=== PATIENT | male | born 1950 ===

== ENCOUNTER 2017-01-19 11:34 | Emergency (ER) | payer MEDICAID ==
[2017-01-19 12:14] VITALS: RESP 18; O2SAT 96
[2017-01-19] MEDS ORDERED: Sodium Chloride 0.9% 1,000 ML IV ONE (13:04)
[2017-01-19 13:22] LABS: BASO # 0.1 K/uL (0.0-0.2); EOS # 2.5 K/uL (0.0-0.7); EOS % 20.8 % (0.0-4.0); HEMATOCRIT 46.8 % (35.0-51.0); LYMPH # 3.2 K/uL (1.0-4.3); LYMPH % 26.7 % (20.0-40.0); MEAN CELL VOLUME 90.6 fL (80.0-94.0); MEAN CORPUSCULAR HGB CONC 33.2 g/dL (33.0-37.0); MEAN PLATELET VOLUME 7.2 fL (7.2-11.7); MONO # 0.8 K/uL (0.0-0.8); MONO % 6.9 % (0.0-10.0); NRBC % 0.1 % (0.0-2.0); PLATELET COUNT 353 K/uL (130-400); RED CELL DISTRIBUTION WIDTH 13.2 % (11.5-14.5); WHITE BLOOD COUNT 12.1 K/uL (4.8-10.8)
[2017-01-19 13:29] LABS: CHLORIDE 100 mmol/L (98-107)
[2017-01-19 13:30] LABS: POTASSIUM 4.2 mmol/L (3.6-5.2); SODIUM 136 mmol/L (132-148)
[2017-01-19 13:33] LABS: ALB/GLOB RATIO 1.4 (1.0-2.1); ALKALINE PHOSPHATASE 64 U/L (38-126); ALT/SGPT 38 U/L (21-72); AST/SGOT 31 U/L (17-59); BILIRUBIN,TOTAL 1.3 mg/dL (0.2-1.3); BLOOD UREA NITROGEN 13 mg/dL (9-20); CALCIUM 8.8 mg/dl (8.6-10.4); CARBON DIOXIDE 24 mmol/L (22-30); GFR AFRICAN-AMERICAN > 60; GLUCOSE,RANDOM 127 mg/dL (75-110); TOTAL PROTEIN 7.2 g/dL (6.3-8.3)
[2017-01-19 13:46] LABS: BASOPHIL 1 % (0-2); EOSINOPHIL 25 % (0-4); NEUTROPHIL 48 % (50-75); REACTIVE LYMPHOCYTES 3 % (0-0); TOTAL CELLS COUNTED 100
--- NOTE | 2017-01-19 14:00 | C.PDOC ---
History Of Present Illness 66 y/o male presents to the ED complaining of RUQ abdominal pain x 2 months. He states his PMD told him to get an ultrasound. Patient notes the pain does increase with intake of fatty foods. Patient denies fever, vomiting, or other complaints. Chief Complaint (Nursing): Abdominal Pain History Per: Patient History/Exam Limitations: no limitations Onset/Duration Of Symptoms: Days (2 months), Persistent Current Symptoms Are (Timing): Still Present Location Of Pain/Discomfort: RUQ Radiation Of Pain To:: None Quality Of Discomfort: Sharp Exacerbating Factors: Food (fatty) Recent travel outside of the [place]: No Past Medical History Reviewed: Historical Data, Nursing Documentation, Vital Signs Vital Signs: Last Vital Signs Temp 98.8 F 01/19/17 16:24 Pulse 68 01/19/17 16:24 Resp 18 01/19/17 16:24 BP 132/90 01/19/17 16:24 Pulse Ox 96 01/19/17 16:24 - Medical History PMH: HTN Surgical History: No Surg Hx Family History: States: Unknown Family Hx - Social History Hx Tobacco Use: No Hx Alcohol Use: No Hx Substance Use: No - Immunization History Hx Influenza Vaccination: No Review Of Systems Except As Marked, All Systems Reviewed And Found Negative. Constitutional: Negative for: Fever Gastrointestinal: Positive for: Abdominal Pain (RUQ). Negative for: Vomiting Physical Exam - Physical Exam Appears: Non-toxic, No Acute Distress Skin: Normal Color, Warm, Dry Head: Atraumatic, Normacephalic Neck: Normal ROM, Supple Chest: Symmetrical, No Tenderness Cardiovascular: Rhythm Regular Respiratory: Normal Breath Sounds, No Rales, No Rhonchi, No Wheezing Gastrointestinal/Abdominal: Soft, Tenderness (RUQ), Other (positive Divya's sign) Back: Normal Inspection, No CVA Tenderness Extremity: Normal ROM, No Swelling Neurological/Psych: Oriented x3, Normal Speech, Normal Cognition ED Course And Treatment - Laboratory Results Result Diagrams: 01/19/17 13:14 01/19/17 13:14 O2 Sat by Pulse Oximetry: 96 (ra) Pulse Ox Interpretation: Normal - CT Scan/US Ultrasound Other Rad Studies (CT/US): Read By Radiologist (Dr. Christianson, David WISEMAN), Radiology Report Reviewed CT/US Interpretation: FINDINGS: LIVER: Measures 20.0 cm. Hepatomegaly.Hepatopedal blood flow. Fatty infiltration manifest ultrasonographically as increased Echogenicity of the liver parenchyma. No mass. No intrahepatic bile duct dilatation. GALLBLADDER: Cholelithiasis. Gallbladder wall thickening, pericholecystic fluid/ sludge. Presumptive evidence for acute cholecystitis. COMMON BILE DUCT: Measures 7.6 mm. No stones. No dilatation. PANCREAS: Unremarkable as visualized. No mass. No ductal dilatation. RIGHT KIDNEY: Measures 5.1 x 11.6cm. Normal echogenicity. No calculus, mass, or hydronephrosis.Incidental finding(s): Sub cm cyst lower pole. LEFT KIDNEY: Measures 12.5 x 6.8cm. Normal echogenicity. No calculus, mass, or hydronephrosis.Incidental finding(s): Lower pole cyst 1.6 x 2 cm. SPLEEN: Normal in size and contour. No mass. AORTA: No aneurysmal dilatation. IVC: Unremarkable. OTHER FINDINGS: None. IMPRESSION: Cholelithiasis/presumptive evidence for acute cholecystitis. Hepatomegaly/ fatty infiltration of the liver without focal abnormality. Medical Decision Making Medical Decision Making: Plan: * Labs * Ultrasound * IV Fluids Per Field Clinical Engineer patient to be discharged home on antibiotics and follow up with PMD Sunday (01/22/2017). Disposition - Disposition Referrals: [facility] Zi Mann, [Non-Staff] - Disposition: HOME/ ROUTINE Disposition Time: 16:00 Condition: GOOD Additional Instructions: Thank you for letting us take care of you today. Your provider was Dr. Dickinson. You were treated for gallstones. The emergency medical care you received today was directed at your acute symptoms. If you were prescribed any medication, please fill it and take as directed. It may take several days for your symptoms to resolve. Return to the Emergency Department if your symptoms worsen, do not improve, or if you have any other problems. Please contact your doctor or call one of the physicians/clinics you have been referred to that are listed on the Patient Visit Information form that is included in your discharge packet. Bring any paperwork you were given at discharge with you along with any medications you are taking to your follow up visit. Our treatment cannot replace ongoing medical care by a primary care provider (PCP) outside of the emergency department. Thank you for allowing the [facility] team to be part of your care today. Follow up with your doctor in 2-3 days for re-evaluation. Prescriptions: Ciprofloxacin [Cipro] 500 mg PO BID #14 tab Instructions: Gallstones (ED) Forms: Gen Discharge Inst Telugu Print Language: [place] - Clinical Impression Clinical Impression: Multiple gallstones - Scribe Statement The provider has reviewed the documentation as recorded by the Scribe (Suzanne Arnold) Provider Attestation: All medical record entries made by the Scribe were at my direction and personally dictated by me. I have reviewed the chart and agree that the record accurately reflects my personal performance of the history, physical exam, medical decision making, and the department course for this patient. I have also personally directed, reviewed, and agree with the discharge instructions and disposition.
--- NOTE | 2017-01-19 14:21 | US ---
HISTORY: RUQ tenderness COMPARISON: None. TECHNIQUE: Sonographic evaluation of the abdomen. FINDINGS: LIVER: Measures 20.0 cm. Hepatomegaly.Hepatopedal blood flow. Fatty infiltration manifest ultrasonographically as increased Echogenicity of the liver parenchyma. No mass. No intrahepatic bile duct dilatation. GALLBLADDER: Cholelithiasis. Gallbladder wall thickening, pericholecystic fluid/ sludge. Presumptive evidence for acute cholecystitis. COMMON BILE DUCT: Measures 7.6 mm. No stones. No dilatation. PANCREAS: Unremarkable as visualized. No mass. No ductal dilatation. RIGHT KIDNEY: Measures 5.1 x 11.6cm. Normal echogenicity. No calculus, mass, or hydronephrosis.Incidental finding(s): Sub cm cyst lower pole. LEFT KIDNEY: Measures 12.5 x 6.8cm. Normal echogenicity. No calculus, mass, or hydronephrosis.Incidental finding(s): Lower pole cyst 1.6 x 2 cm. SPLEEN: Normal in size and contour. No mass. AORTA: No aneurysmal dilatation. IVC: Unremarkable. OTHER FINDINGS: None. IMPRESSION: Cholelithiasis/presumptive evidence for acute cholecystitis. Hepatomegaly/fatty infiltration of the liver without focal abnormality.
--- NOTE | 2017-01-19 15:27 | CP.PCM.CON ---
History of Present Illness - History of Present Illness History of Present Illness: PGY-1 note for General Surgery, Dr. Xiong Surgical Consult: RUQ abdominal pain Patient is a 66 year old male, with PMHx of DM and HTN, who presents to the ED with abdominal pain. He admits right upper quadrant pain that began two months ago. He describes the pain as "sharp," intermittent, 8/10 on the severity scale, and does not radiate. The pain is made worse with fatty food intake. He denies fever, chills, nausea, vomiting, diarrhea, dysuria or hematochezia. No prior abdominal surgeries. Pt was sent up by his PMD, Dr. Peterson. PMHx: Type two diabetes mellitus, hypertension Home meds: Metformin 1000mg BID, Lisinopril 20mg daily PSHx: trauma surgery to neck/shoulder, Review of Systems - Constitutional Constitutional: absent: Chills, Fever - EENT Eyes: absent: Change in Vision Ears: absent: Decreased Hearing - Cardiovascular Cardiovascular: absent: Chest Pain, Chest Pain at Rest, Dyspnea - Respiratory Respiratory: absent: Cough - Gastrointestinal Gastrointestinal: Abdominal Pain (RUQ x 2 months). absent: Diarrhea, Dysphagia , Hematochezia, Nausea, Vomiting - Genitourinary Genitourinary: absent: Dysuria - Musculoskeletal Musculoskeletal: absent: Numbness, Tingling - Integumentary Integumentary: absent: Jaundice - Neurological Neurological: absent: Tingling, Weakness Past Patient History - Past Social History Smoking Status: Former Smoker - CARDIAC Hx Hypertension: Yes - ENDOCRINE/METABOLIC Hx Diabetes Mellitus Type 2: Yes - PSYCHIATRIC Hx Substance Use: No - SURGICAL HISTORY Hx Surgeries: No - ANESTHESIA Hx Anesthesia: No Meds Allergies/Adverse Reactions: Allergies Allergy/AdvReac Type Severity Reaction Status Date / Time No Known Allergies Allergy Unverified 01/19/17 13:04 - Medications Medications: Current Medications Sodium Chloride (Sodium Chloride 0.9%) 1,000 mls @ 250 mls/hr IV .Q4H ONE Stop: 01/19/17 17:03 Last Admin: 01/19/17 13:18 Dose: 250 mls/hr Physical Exam - Constitutional Appears: No Acute Distress - Head Exam Head Exam: ATRAUMATIC, NORMAL INSPECTION, NORMOCEPHALIC - Eye Exam Eye Exam: EOMI. absent: Scleral icterus Pupil Exam: PERRL - ENT Exam ENT Exam: Mucous Membranes Moist - Respiratory Exam Respiratory Exam: NORMAL BREATHING PATTERN - GI/Abdominal Exam GI & Abdominal Exam: Soft, Tenderness (RUQ, positive mattson sign) - Extremities Exam Extremities exam: Positive for: normal inspection. Negative for: tenderness - Neurological Exam Neurological exam: Alert, Oriented x3 - Skin Skin Exam: Normal Color, Warm Results - Vital Signs Recent Vital Signs: Last Vital Signs Temp 97.2 F L 01/19/17 14:10 Pulse 63 01/19/17 14:10 Resp 18 01/19/17 14:10 BP 137/84 01/19/17 14:10 Pulse Ox 96 01/19/17 14:25 - Labs Result Diagrams: 01/19/17 13:14 01/19/17 13:14 Labs: Laboratory Results - last 24 hr 01/19/17 13:14 WBC 12.1 H RBC 5.16 Hgb 15.5 Hct 46.8 MCV 90.6 MCH 30.0 MCHC 33.2 RDW 13.2 Plt Count 353 MPV 7.2 Neut % (Auto) 44.6 L Lymph % (Auto) 26.7 [place] % (Auto) 6.9 Eos % (Auto) 20.8 H Baso % (Auto) 1.0 Neut # 5.4 Lymph # 3.2 [place] # 0.8 Eos # 2.5 H Baso # 0.1 Neutrophils % (Manual) 48 L Lymphocytes % (Manual) 20 Reactive Lymphs % 3 H Monocytes % (Manual) 3 Eosinophils % (Manual) 25 H Basophils % (Manual) 1 Platelet Estimate Normal RBC Morphology Normal Sodium 136 Potassium 4.2 Chloride 100 Carbon Dioxide 24 Anion Gap 16 BUN 13 Creatinine 0.6 L Est GFR ( Amer) > 60 Est GFR (Non-Af Amer) > 60 Random Glucose 127 H Calcium 8.8 Total Bilirubin 1.3 AST 31 ALT 38 Alkaline Phosphatase 64 Total Protein 7.2 Albumin 4.2 Globulin 3.0 Albumin/Globulin Ratio 1.4 Lipase 71 Assessment & Plan - Assessment and Plan (Free Text) Assessment: 66 year old with acute cholecystitis Plan: Recommend Admission to medicine service for management of chronic conditions Recommend Cholecystectomy Will need medical clearance prior to surgery due to age, risk factors Spoke with Dr. Peterson, pts PMD, who was made aware of all clinical findings, including leukocytosis/US findings, and recommended pt to follow up as outpatient Recommend PO Cipro
[2017-01-19 16:26] VITALS: BP 132/90; PULSE 68; TEMP 98.8
== END 2017-01-19 17:03 | disposition home or self-care (01) ==
LOC: C.ER 11:34
DX: K80.20 Calculus of gallbladder without cholecystitis without obstruction (principal)
CPT/HCPCS: 76700; 80053; 83690; 85025; 96360; 99284; J7040

== ENCOUNTER 2017-02-01 08:42 | Day surgery (SDC) | payer MEDICAID ==
[2017-01-24 10:25] VITALS: BMI 35.5
[2017-02-01] MEDS ORDERED: Propofol 10 mg/ml Inj (20 ML) ONE (11:39)
[2017-02-01] MEDS ORDERED: Midazolam 2 MG/2 ML VIAL ONE (11:39)
[2017-02-01] MEDS ORDERED: Rocuronium 10 mg/ml (5 ml) ONE (11:39)
[2017-02-01] MEDS ORDERED: Succinylcholine Chloride 20 mg/ml Syr (5 ml) IV ONE (11:46)
[2017-02-01] MEDS ORDERED: Neostigmine Methylsulfate 3mg/3ml Syringe IV ONE (11:46)
[2017-02-01] MEDS ORDERED: ceFAZolin IV 2 gm in Dextrose 50 ML IVPB ONE (11:49)
[2017-02-01] MEDS ORDERED: Bupivacaine-Epi 0.5%-1:200,000 PF Inj ONE (11:49)
[2017-02-01] MEDS ORDERED: Oxycodone/Acetaminophen 5/325 mg Tab PO PRN (13:35)
--- NOTE | 2017-02-01 13:35 | PCM.SURG1 ---
Surgeon's Initial Post Op Note - Surgeon's Notes Surgeon: Dr. Xiong Vacuum Caster: Dr. Rodriguez PGY-1, Karlo Lindsay OMS-3 Type of Anesthesia: General Endo Pre-Operative Diagnosis: cholelithiasis Operative Findings: see operative report Post-Operative Diagnosis: see operative report Operation Performed: laparoscopic cholecystectomy Specimen/Specimens Removed: gallbladder. gallbladder fluid Estimated Blood Loss: EBL {In ML}: 50 Blood Products Given: N/A Drains Used: No Drains Post-Op Condition: Good Date of Surgery/Procedure: 02/01/17 Time of Surgery/Procedure: 11:45
[2017-02-01] MEDS ORDERED: HYDROmorphone 0.5 mg/0.5 ml ISec IVP PRN (14:03)
[2017-02-01] MEDS ORDERED: Lactated Ringer's 1,000 ML IV SCH (14:15)
[2017-02-01] MEDS ORDERED: Lactated Ringer's 500 ML IV ONE ×2 (14:29)
--- NOTE | 2017-02-01 15:19 | OP ---
PROCEDURE DATE: 02/01/2017 PREOPERATIVE DIAGNOSES: Acute cholecystitis and cholelithiasis and umbilical hernia. POSTOPERATIVE DIAGNOSES: Acute calculous cholecystitis, empyema of the gallbladder and an umbilical hernia. PROCEDURES PERFORMED: Laparoscopic cholecystectomy and repair of umbilical hernia. FINDINGS: There is a small umbilical hernia coming out of a relatively large opening measuring appro ximately 2 cm in size. The gallbladder was markedly distended and very thickened daniels containing a large amount of purulent material and large stones at the fundus. Dense adhesions were noted involvi ng the omentum and the gallbladder. PROCEDURE: Under general anesthesia, the patient was prepared and draped in sterile fashion. First, an incision was made in the upper portion of the umbilicus and extended down into subcutaneous tissu e down into fascia. The fascia was then exposed all the way around exposing the umbilical sac. The defect was noted. The fascia all around was then dissected free. A 10 mm trocar was inserted in the defect and CO2 was insufflated to about 15 mmHg pressure. The patient was placed in a reverse Trend elenburg position, turned over towards the left side. Another 5 mm trocar was inserted in the epigas trium and another one in the right upper quadrant. It is impossible to grab the gallbladder because of the tenseness and the fibrosis involved. Therefore, it was partially emptied of the purulent mate rial with large bore syringe. The adhesions were taken down with blunt dissection. The fundus was t hen grasped. Cystic duct and cystic arteries were then isolated. They were transected between Hemoc lips. The gallbladder was then removed from the liver bed after putting it in an Endobag. The area was irrigated with copious amounts of saline solution. Irrigating fluid suctioned out. The gallblad ezequiel was extracted through the umbilical port at this point. No bleeding was noted. CO2 allowed to e scape from the peritoneal cavity. Trocars removed. The wound closed in a routine fashion. ESTIMATED BLOOD LOSS: About 10 mL. COMPLICATIONS: None. Brandin Xiong MD cc: [id number] TT: 02/01/2017 15:18:53 me
[2017-02-01 15:41] VITALS: BP 141/62; PULSE 98; RESP 18; TEMP 98; O2SAT 97
== END 2017-02-01 16:35 | disposition home or self-care (01) ==
LOC: C.SDS 08:42
PROVIDERS: ATTEND Surgery
DX: K80.00 Calculus of gallbladder with acute cholecystitis without obstruction (principal); K42.9 Umbilical hernia without obstruction or gangrene
CPT/HCPCS: 47562; 49652; 82948; J0360; J0690; J2001; J2250; J2405; J2704; J2710; J3010; J7120